=== PATIENT | female | born 1965 | race Asian ===

== ENCOUNTER 2021-06-04 04:41 | Day surgery (SDC) | payer OTHER ==
[2021-06-02 13:04] VITALS: BMI 24.7
[2021-06-04] MEDS ORDERED: IBUPROFEN 400 MG TABLET (FP) PO PRN (07:58)
[2021-06-04] MEDS ORDERED: ACETAMINOPHEN 325 MG TABLET (FP) PO PRN (07:58)
[2021-06-04] MEDS ORDERED: oxyCODONE HCL 5 MG TABLET PO PRN (12:34)
[2021-06-04] MEDS ORDERED: ACETAMINOPHEN 1000 MG/100 ML BAG IVPB ONE (12:34)
[2021-06-04] MEDS ORDERED: PROMETHAZINE HCL 25 MG/1 ML VIAL IVPUSH PRN (12:34)
[2021-06-04] MEDS ORDERED: ONDANSETRON 4 MG/2 ML VIAL IVPUSH PRN (12:34)
[2021-06-04] MEDS ORDERED: LACTATED RINGERS SOLUTION 1,000 ML IV SCH (12:45)
[2021-06-04] MEDS ORDERED: PROPOFOL 20 ML ONE (12:49)
[2021-06-04] MEDS ORDERED: MIDAZOLAM HCL 2 MG/2 ML SINGLE DOSE VIAL ONE (12:49)
[2021-06-04] MEDS ORDERED: LIDOCAINE HCL/PF 2% SDV 5ML VIAL ONE (13:08)
[2021-06-04] MEDS ORDERED: KETOROLAC TROMETHAMINE 30 MG/1 ML VIAL ONE (13:09)
[2021-06-04] MEDS ORDERED: ACETAMINOPHEN INJECTION 100 ML IVPB ONE (14:09)
[2021-06-04 16:33] VITALS: BP 124/78; PULSE 75; TEMP 97.3
== END 2021-06-04 16:45 | disposition home or self-care (01) ==
LOC: JASU-SURG 04:41
PROVIDERS: ATTEND Obstetrics & Gynecology
PROC: 0UB98ZX Excision of Uterus, Via Natural or Artificial Opening Endoscopic, Diagnostic (ICD-10-PCS; principal; 2021-06-04 13:00)
PROC: 0UDB7ZX Extraction of Endometrium, Via Natural or Artificial Opening, Diagnostic (ICD-10-PCS; 2021-06-04 13:00)
DX: N95.0 Postmenopausal bleeding (principal); N84.0 Polyp of corpus uteri
CPT/HCPCS: 88305-TC; 94760